=== PATIENT | female | born 1970 | race Caucasian/White ===

== ENCOUNTER 2023-09-10 07:40 | Day surgery (SDC) | payer OTHER ==
[~2023-09-10] VITALS: Ht 152.4 cm; Wt 67.1 kg
[2023-09-10] MEDS ORDERED: fentaNYL citrate 0.05 MG/ML VIAL ONE (08:36)
[2023-09-10] MEDS ORDERED: LIDOCAINE 2% 100 MG/5 ML UJET TP ONE (08:36)
[2023-09-10] MEDS ORDERED: fentaNYL citrate 0.05 MG/ML VIAL IVP ONE (09:45)
== END 2023-09-10 09:35 | disposition home or self-care (01) ==
LOC: MDS 07:40 → MMU 07:42 → MDS 09:35
PROVIDERS: ATTEND Internal Medicine Gastroenterology
DX: Z12.11 Encounter for screening for malignant neoplasm of colon (principal); K63.5 Polyp of colon; K57.30 Diverticulosis of large intestine without perforation or abscess without bleeding; E66.9 Obesity, unspecified
CPT/HCPCS: 45385; J3010